=== PATIENT | female | born 1980 | race Caucasian/White ===

== ENCOUNTER 2025-09-19 01:05 | Emergency (ER) | payer OTHER, SELFPAY ==
--- OUTSIDE RECORDS SUMMARY | 2025-09-17 09:00 | XMS_ITS | Encounter Summary ---
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 Name Role Phone Unavailable Primary Care Provider Unavailabl e Reason for Visit * Reason Comments Chest Pain Headache Encounter Details Date Type Department Care Team (Late st Contact Info) Description 09/17/2025 9:00 AM EST Office Visit [facility] [address] [place] [id number] Demi Bills FNP [address] [place] [address] Social History Tobacco Use Types Packs/Day Years Used Date Smoking Tobacco: Every Day Cigarettes Smokeless Tobacco: Never Tobacco Cessation:Ready to Q uit: Not Asked; Counseling Given: Not Answered Comments Unknown Sex and Gender Information Value Date Recorded Sex Assigned at Female 09/17/2025 2:08 PM PST Legal Sex Female 12:29 PM PST Gender Identity Female 09/17/2025 2:08 PM PST Sexual Orientation Straight 09/17/2025 2: 08 PM PST documented as of this encounter Last Filed Vital Signs Vital Sign Reading Time Taken Comments Blood Pressure 140/90 09/17/2025 11:05 AM EST Pulse 74 09/17/2025 11:05 AM EST Temperature 37.3 C (99.2 F) 09/17/2025 11:05 AM EST Respiratory Rate - - Oxygen Saturation 95% 09/17/2025 11:05 AM EST Inhaled Oxygen Concentration - - Weight - - Height - - Body Mass Index - - documented in this encounter Progress Notes * GRZEGORZ Ivory - 09/17/2025 11:59 AM EST Subjective: CC: Chest Pain and 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 Reports having 7 kids. Reports history of pre-eclampsia. Denies taking pain meds Reports chest pain started 3 days ago, reports nausea, vomit, dizziness, reports vomiitting for thepast week- reports daily vomiting. Reports blurry vision started 1 days ago. Reports smoking cigarettes daily, denies cough. Reports irregular periods. Reports last night she took tylenol for chest pain- no effectives. Reports chronic bilateral upper back pain with shoulder pains. Reports increased thirst, urinating a lot. Review of Systems Constitutional: Negative. HENT: Negative. Eyes: Negative. Respiratory: Negative. Cardiovascular: Positive for chest pain. Breasts: Negative. Gastrointestinal: Positive for nausea and vomiting. Endocrine: Negative. Genitourinary: Negative. Musculoskeletal: Negative. Skin: Negative. Allergic/Immunologic: Negative. Neurological: Positive for headaches. Hematological: Negative. Psychiatric/Behavioral: Negative. All other systems reviewed and are negative. Remainder ROS: See HPI, systems reviewed and are otherwise negative or noncontributory. Not on File There is no problem list on file for this patient. Current Outpatient Medications: acetaminophen (TYLENOL) 500 mg tablet, Take 1 Tablet by mouth every 6 (six) hours as needed for pain., Disp: 60 Tablet, Rfl: 3 amLODIPine (NORVASC) 5 mg tablet, Take 1 Tablet by mouth once daily., Disp: 30 Tablet, Rfl: 0 Objective: Vitals: 09/17/25 1105 BP: (!) 140/90 Pulse: 74 Temp: 99.2 ??F (37.3 ??C) SpO2: 95% Physical Exam Vitals and nursing note reviewed. Constitutional: General: She is not in acute distress. Appearance: Normal appearance. She is well-developed. She is not ill-appearing, toxic-appearing or diaphoretic. HENT: Head: Normocephalic and atraumatic. Not macrocephalic. Right Ear: Tympanic membrane, ear canal and external ear normal. There is no impacted cerumen. Left Ear: Tympanic membrane, ear canal and external ear normal. There is no impacted cerumen. Nose: Nose normal. No congestion or rhinorrhea. Mouth/Throat: Mouth: Mucous membranes are moist. Pharynx: Oropharynx is clear. Uvula midline. No oropharyngeal exudate or posterior oropharyngeal erythema. Eyes: General: Lids are normal. No scleral icterus. Right eye: No discharge. Left eye: No discharge. Extraocular Movements: Extraocular movements intact. Conjunctiva/sclera: Conjunctivae normal. Pupils: Pupils are equal, round, and reactive to light. Neck: Thyroid: No thyroid mass, thyromegaly or thyroid tenderness. Trachea: Trachea normal. No tracheal deviation. Cardiovascular: Rate and Rhythm: Normal rate and regular rhythm. Chest Wall: PMI is not displaced. Pulses: Normal pulses. Heart sounds: Normal heart sounds. No murmur heard. No friction rub. No gallop. Pulmonary: Effort: Pulmonary effort is normal. No accessory muscle usage or respiratory distress. Breath sounds: Normal breath sounds. No stridor. No decreased breath sounds, wheezing, rhonchi or rales. Chest: Chest wall: No tenderness. Abdominal: General: Bowel sounds are normal. There is no distension. Palpations: Abdomen is soft. There is no hepatomegaly, splenomegaly or mass. Tenderness: There is no abdominal tenderness. There is no right CVA tenderness, left CVA tenderness, guarding or rebound. Hernia: No hernia is present. Musculoskeletal: General: Normal range of motion. Cervical back: Full passive range of motion without pain, normal range of motion and neck supple. No edema, rigidity or tenderness. Normal range of motion. Lymphadenopathy: Cervical: No cervical adenopathy. Skin: General: Skin is warm and dry. Capillary Refill: Capillary refill takes less than 2 seconds. Coloration: Skin is not jaundiced or pale. Findings: No abrasion, bruising, erythema, lesion or rash. Neurological: General: No focal deficit present. Mental Status: She is alert and oriented to person, place, and time. Mental status is at baseline. Motor: No tremor, atrophy, abnormal muscle tone or seizure activity. Psychiatric: Mood and Affect: Mood normal. Speech: Speech normal. Behavior: Behavior normal. Behavior is cooperative. Thought Content: Thought content normal. Judgment: Judgment normal. Assessment and Plan: Etienne Garcia Angelica??n is a 44 year old female patient who presents as walk-in to urgent care for evaluation of chest pain and h/a R07.9 Intermittent chest pain (primary encounter diagnosis) Plan : ECG ROUTINE ECG W/LEAST 12 LDS TRCG ONLY W/O I&R BLOOD COUNT COMPLETE AUTO&AUTO DIFRNTL WBC COMPREHENSIVE METABOLIC PANEL GONADOTROPIN CHORIONIC QUALITATIVE VITAMIN B12 & FOLATE TROPONIN T TSH W/RFLX FREE T4 HEMOGLOBIN GLYCOSYLATED A1C LIPID PANEL IRON, TIBC, FERRITIN PANEL R11.2 Nausea and vomiting, unspecified vomiting type Plan : H PYLORI UREA BREATH TEST I10 Primary hypertension Plan : AMLODIPINE 5 MG TABLET - Take 1 Tablet by mouth once daily. AMLODIPINE 5 MG TABLET - Take 1 Tablet by mouth once daily. G44.201 Acute intractable tension-type headache Plan : ACETAMINOPHEN 500 MG TABLET - Take 1 Tablet by mouth every 6 (six) hours as needed for pain. Z28.21 Immunization refused Plan: EKG result: Normal Lungs sounds are clear, afebrile. A plan is to obtain labs today. She is starting on amlodipine as ordered and PRN Tylenol for h/a She was informed if no improvement with chest pain, develops vision changes, sob, more weakness then seek immediate medical attention. Pt was educated to increase water intake 2-3L daily r/t recent episodes of vomit. Follow Up: Return if symptoms worsen or fail to improve. documented in this encounter Miscellaneous Notes * Patient Instructions - GRZEGORZ Ivory - 09/17/2025 5:05 PM EST If you are not able to keep your appointment please call 24-48 hours before your appointment to cancel or reschedule. documented in this encounter Plan of Treatment Scheduled Orders Name Type Priority Associated Diagnoses Orde r Schedule TROPONIN T Routine Lab Routine Intermittent chest pain Ordered: 09/17/2025 documented as of this encounter Procedures Procedure Name Priority Date/Time Associated Diagnosis Comments IRON, TIBC, FERRITIN PANEL Routine 09/17/2025 12:33 PM EST Intermittent chest pain TSH W/RFLX FREE T4 Routine 09/17/2025 12 :31 PM EST Intermittent chest pain VITAMIN B12 & FOLATE Routine 09/17/2025 12:31 PM EST Intermittent chest pain BLOOD COUNT COMPLETE AUTO&AUTO DIFRNTL WBC Routine 09/17/2025 12:31 PM EST Intermittent chest pain GONADOTROPIN CHORIONIC QUALITATIVE Routine 09/17/2025 12:31 PM EST Intermittent chest pain HEMOGLOBIN GLYCOSYLATED A1C Routine 09/17/2025 12:31 PM EST Intermittent chest pain H PYLORI UREA BREATH TEST Routine 09/17/2025 12:31 PM EST Nausea and vomiting, unspecified vomiting type LIPID PANEL Routine 09/17/2025 12:31 PM EST Intermittent chest pain COMPREHENSIVE METABOLIC PANEL Routine 09/17/2025 12:31 PM EST Intermittent chest pain documented in this encounter Results * (ABNORMAL) IRON, TIBC, FERRITIN PANEL Routine (09/17/2025 12:33 PM EST) IRON, TOTAL 53 40 - 190 mcg/dL 09/18/2025 9:10 AM EST [facility] IRON BINDING CAPACITY 442 250 - 450 mcg/dL (calc) 09/18/2025 9:10 AM EST [facility] % SATURATION 12(L) 16 - 45 % (calc) 09/18/2025 9:10 AM EST [facility] FERRITIN 7(L) 16 - 232 ng/mL 09/18/2025 5:24 AM EST [facility] Blood Blood / Unknown 09/17/2025 1 2:33 PM EST 09/18/2025 4:[address] [facility] - BLOOD DRAW Final Resul t [employer] [address] [place] [address], [facility] [address] [address] * LIPID PANEL Routine (09/17/2025 12:31 PM EST) CHOLESTEROL, TOTAL 139 <200 mg/dL 09/18/2025 6:10 AM EST [email or web address] HDL CHOLESTEROL 59 > OR = 50 mg/dL 09/18/2025 6:10 AM EST [facility] TRIGLYCERIDES 38 <150 mg/dL 09/18/2025 6:10 AM EST [email or web address] LDL-CHOLESTEROL 69 mg/dL (calc) 09/18/2025 6:10 AM EST [email or web address] [place] [facility] CHOL/HDLC RATIO 2.4 <5.0 (calc) 09/18/2025 6:10 AM EST [email or web address] NON-HDL CHOLESTEROL 80 <130 mg/dL (calc) 09/18/2025 6:10 AM EST [email or web address] Blood Blood / Unknown 09/17/2025 1 2:31 PM EST 09/18/2025 3:54 AM EST Narrative [facility] - 09/18/2025 6:33 AM EST Reference range: <100 . Desirable range <100 mg/dL for primary prevention; <70 mg/dL for patients with CHD or diabetic patients with > or = 2 CHD risk factors. . LDL-C is now calculated using the Juan-Latanya calculation, which is a validated novel method providing better accuracy than the Friedewald equation in the estimation of LDL-C. Juan LGEGETT et al. DAMEON. 2013;310(19): 9784-3943 (http://education.[employer]/faq/BBL647) For patients with diabetes plus 1 major ASCVD risk factor, treating to a non-HDL-C goal of <100 mg/dL (LDL-C of <70 mg/dL) is considered a therapeutic option. us Demi Bills [facility] - BLOOD DRAW Final Resul t [email or web address] [address] [address], [email or web address] [address] [address] * HEMOGLOBIN GLYCOSYLATED A1C Routine (09/17/2025 12:31 PM EST) Pathologist [facility] HEMOGLOBIN A1C 5.6 <5.7 % 09/18/2025 5:23 AM EST [facility] Blood Blood / Unknown 09/17/2025 1 2:31 PM EST 09/18/2025 2:59 AM EST [facility] - 09/18/2025 5:53 AM EST For the purpose of screening for the presence of diabetes: . <5.7% Consistent with the absence of diabetes 5.7-6.4% Consistent with increased risk for diabetes (prediabetes) > or =6.5% Consistent with diabetes . This assay result is consistent with a decreased risk of diabetes. . Currently, no consensus exists regarding use of hemoglobin A1c for diagnosis of diabetes in children. . According to [place] Diabetes Association (ADA) guidelines, hemoglobin A1c <7.0% represents optimal control in non- diabetic patients. Different metrics may apply to specific patient populations. Standards of Medical Care in Diabetes(ADA). . us Demi Bills [facility] - BLOOD DRAW Final Resul t Performing Organization Address [facility] de Phone Number [employer] [address] [place] [address], [employer] [address] [address] * TSH W/RFLX FREE T4 Routine (09/17/2025 12:31 PM EST) TSH W/REFLEX TO FT4 1.30 mIU/L 09/18/2025 6:06 AM EST [facility] Blood Blood / Unknown 09/17/2025 1 2:31 PM EST 09/18/2025 3:54 AM EST [facility] - 09/18/2025 6:33 AM EST Reference Range . > or = 20 Years 0.40-4.50 . Ranges First trimester 0.26-2.66 Second trimester 0.55-2.73 Third trimester 0.43-2.[address] [facility] - BLOOD DRAW Final Resul t Performing Organization Address [facility] de Phone Number [employer] [address] [place] [address], [employer] [address] [address] * VITAMIN B12 & FOLATE Routine (09/17/2025 12:31 PM EST) Pathologist [facility] VITAMIN B12 404 200 - 1,100 pg/mL 09/18/2025 7:45 AM EST [facility] FOLATE, SERUM 12.4 ng/mL 09/18/2025 7:45 AM EST [facility] Blood Blood / Unknown 09/17/2025 1 2:31 PM EST 09/18/2025 3:54 AM EST [facility] - 09/18/2025 7:55 AM EST Reference Range Low: <3.4 Borderline: 3.4-5.4 Normal: >5.4 . us Demi [facility] LAB - BLOOD DRAW Final Resul t Performing Organization Address [facility] Co de Phone Number [facility] [address] [address], [employer] [address] [address] * (ABNORMAL) H PYLORI UREA BREATH TEST Breath BREATH Routine (09/17/2025 12:31 PM EST) [facility] RESULT DETECTED( A) NOT DETECTED 09/18/2025 2:13 PM EST [facility] BREATH (Breath) 09/17/2025 1 2:31 PM EST 09/18/2025 2:08 PM EST [facility] - 09/18/2025 2:45 PM EST . Antimicrobials, proton pump inhibitors, and bismuth preparations are known to suppress H. pylori, and ingestion of these prior to H. pylori diagnostic testing may lead to false negative results. If clinically indicated, the test may be repeated on a new specimen obtained two weeks after discontinuing treatment. However, a positive result is still clinically valid. us Demi LANTIG[facility] - MICROBIOLOGY AMBULATOR Y Final Result Performing Organization Address [facility]/ZIP Co de Phone Number [facility] [address] [address], [employer] [address] [place] [address] * GONADOTROPIN CHORIONIC QUALITATIVE Routine (09/17/2025 12:31 PM EST) Pathologist [facility] CHORIONIC GONADOTROPIN, QUALITATIVE NEGATIVE 09/18/2025 5:26 AM EST [email or web address] Blood Blood / Unknown 09/17/2025 1 2:31 PM EST 09/18/2025 3:54 AM EST Narrative [email or web address] - 09/18/2025 5:53 AM EST Reference Range Non-: Negative : Positive . Demi Bills [facility] - BLOOD DRAW Final Resul t [facility] [address] [address], [employer] [facility] [address] [place] [address] * COMPREHENSIVE METABOLIC PANEL Routine (09/17/2025 12:31 PM EST) [facility] GLUCOSE 77 65 - 99 mg/dL 09/18/2025 6:10 AM [employer] [facility] UREA NITROGEN (BUN) 10 7 - 25 mg/dL 09/18/2025 6:10 AM [employer] [facility] CREATININE (blood) 0.69 0.50 - 0.99 mg/dL 09/18/2025 6:10 AM [employer] [facility] EGFR 110 > OR = 60 mL/min/1. 73m2 09/18/2025 6:10 AM [employer] [facility] BUN/CREATININE RATIO SEE NOTE: 6 - 22 (calc) 09/18/2025 6:10 AM [employer] [facility] SODIUM 139 135 - 146 mmol/L 09/18/2025 6:10 AM [employer] [facility] POTASSIUM 4.1 3.5 - 5.3 mmol/L 09/18/2025 6:10 AM [employer] [facility] CHLORIDE 106 98 - 110 mmol/L 09/18/2025 6:10 AM [employer] [facility] CARBON DIOXIDE 25 20 - 32 mmol/L 09/18/2025 6:10 AM [employer] [facility] CALCIUM 9.3 8.6 - 10.2 mg/dL 09/18/2025 6:10 AM EST [email or web address] PROTEIN, TOTAL 6.9 6.1 - 8.1 g/dL 09/18/2025 6:10 AM EST [email or web address] ALBUMIN 4.3 3.6 - 5.1 g/dL 09/18/2025 6:10 AM EST [email or web address] GLOBULIN 2.6 1.9 - 3.7 g/dL (calc) 09/18/2025 6:10 AM EST [email or web address] ALBUMIN/GLOBULI N RATIO 1.7 1.0 - 2.5 (calc) 09/18/2025 6:10 AM EST [email or web address] BILIRUBIN, TOTAL 0.5 0.2 - 1.2 mg/dL 09/18/2025 6:10 AM EST [email or web address] ALKALINE PHOSPHATASE 76 31 - 125 U/L 09/18/2025 6:10 AM EST [email or web address] AST 17 10 - 30 U/L 09/18/2025 6:10 AM EST [email or web address] ALT 11 6 - 29 U/L 09/18/2025 6:10 AM [employer] [facility] Blood Blood / Unknown 09/17/2025 1 2:31 PM EST 09/18/2025 3:54 AM EST Narrative [facility] - 09/18/2025 6:33 AM EST . Fasting reference interval . Not Reported: BUN and Creatinine are within reference range. . Demi Bills [facility] - BLOOD DRAW Final Resul t [employer] [address] [address], [email or web address] [address] [address] * BLOOD COUNT COMPLETE AUTO&AUTO DIFRNTL WBC Routine (09/17/2025 12:31 PM EST) WHITE BLOOD CELL COUNT 4.8 3.8 - 10.8 Thousand/ uL 09/18/2025 3:21 AM EST [email or web address] RED BLOOD CELL COUNT 4.90 3.80 - 5.10 Million/u L 09/18/2025 3:21 AM EST [email or web address] HEMOGLOBIN 14.5 11.7 - 15.5 g/dL 09/18/2025 3:21 AM EST [email or web address] [facility] HEMATOCRIT 44.9 35.0 - 45.0 % 09/18/2025 3:21 AM [employer] [facility] MCV 91.6 80.0 - 100.0 fL 09/18/2025 3:21 AM [employer] [facility] MCH 29.6 27.0 - 33.0 pg 09/18/2025 3:21 AM [employer] [facility] MCHC 32.3 32.0 - 36.0 g/dL 09/18/2025 3:21 AM [employer] [facility] RDW 11.9 11.0 - 15.0 % 09/18/2025 3:21 AM [employer] [facility] PLATELET COUNT 259 140 - 400 Thousand/ uL 09/18/2025 3:21 AM [employer] [facility] MPV 11.4 7.5 - 12.5 fL 09/18/2025 3:21 AM [employer] [facility] ABSOLUTE NEUTROPHILS 1,512 1,500 - 7,800 cells/uL 09/18/2025 3:21 AM [employer] [facility] ABSOLUTE LYMPHOCYTES 2,654 850 - 3,900 cells/uL 09/18/2025 3:21 AM [employer] [facility] ABSOLUTE MONOCYTES 538 200 - 950 cells/uL 09/18/2025 3:21 AM [employer] [facility] ABSOLUTE EOSINOPHILS 58 15 - 500 cells/uL 09/18/2025 3:21 AM [employer] [facility] ABSOLUTE BASOPHILS 38 0 - 200 cells/uL 09/18/2025 3:21 AM [employer] [facility] NEUTROPHILS PCT 31.5 % 3:21 AM [employer] [facility] LYMPHOCYTES 55.3 % 09/18/2025 3:21 AM [employer] [facility] MONOCYTES 11.2 % 09/18/2025 3:21 AM [employer] [facility] EOSINOPHILS 1.2 % 09/18/2025 3:21 AM [employer] [facility] BASOPHILS 0.8 % 09/18/2025 3:21 AM [employer] [facility] Blood Blood / Unknown 09/17/2025 1 2:31 PM EST 09/18/2025 2:59 AM EST [employer] [facility] - 09/18/2025 3:35 AM EST For adults, a slight decrease in the calculated MCHC value (in the range of 30 to 32 g/dL) is most likely not clinically significant; however, it should be interpreted with caution in correlation with other red cell parameters and the patient's clinical condition. us Demi Bills [facility] - BLOOD DRAW Final Resul t [email or web address] [address] [address], [email or web address] [address] [address] documented in this encounter Visit Diagnoses Diagnosis Intermittent chest pain- Primary Chest pain, unspecified Nausea and vomiting, unspecified vomiting type Primary hypertension Unspecified essential hypertension Acute intractable tension-type headache Immunization refused documented in this encounter
--- NOTE | 2025-09-19 | ECG_ITS ---
Test Reason : CHEST PAIN Blood Pressure : */* mmHG Vent. Rate : 84 BPM Atrial Rate : 84 BPM P-R Int : 124 ms QRS Dur : 90 ms QT Int : 382 ms P-R-T Axes : 62 21 55 degrees QTcB Int : 451 ms Normal sinus rhythm Normal ECG No previous ECGs available Referred By: Generic ED Physician Electronically Signed By: ALLISON CARLSON
--- NOTE | ~2025-09-19 | XR_ITS ---
CLINICAL HISTORY: cough 1 view chest x-ray Comparison: None provided Findings: The lungs are clear. Heart size is normal. No acute fracture. IMPRESSION: 1. No acute findings. This document has been electronically signed by: Ayde Farnsworth MD on 09/19/2025 02:52:49
[2025-09-19 01:12] VITALS: BP 147/88; PULSE 99; RESP 20; TEMP 36.7; O2SAT 97; BMI 29.3
--- NOTE | 2025-09-19 01:50 | ED.GENADULT ---
HPI - General Adult General Chief complaint: General Medical Stated complaint: high blood pressure Time Seen by Provider: 09/19/25 01:49 Source: patient Mode of arrival: ambulatory Limitations: no limitations History of Present Illness ED Provider: Chino ORDAZ HPI narrative: The patient is a 44-year-old female presenting to the ED reporting since Friday she has been experiencing vague symptoms of generalized headache, painful but nonproductive cough, fatigue/malaise, and nausea with poor appetite. The patient reports she was seen at her primary care doctor's office on Friday when symptoms began as she was already there picking up paperwork regarding insurance at work, the patient reports while she was being seen at her doctor's office she had a high blood pressure of 170/100. Patient reports she has been taking Tylenol for her symptoms but denies significant improvement. The patient reports today she experienced an episode of post-tussive vomiting and presents to the ED for evaluation. Patient denies associated hemoptysis, productive cough, spontaneous vomiting, abdominal pain, diarrhea, urinary symptoms, or recent sick contacts or trauma. Related Data Allergies Allergy/AdvReac Type Severity Reaction Status Date / Time No Known Allergies Allergy Verified 09/19/25 01:20 Review of Systems Review of Systems: Yes all other systems are reviewed and are negative PMFSH Social History Social History Smoked in Last 30 Days: Yes Use of substances other than those prescribed or required for medical reasons: No Advance Directives: No Advance Directives Information Provided: No Patient : No Physical Exam ED Vital Signs: Vital Signs - 24 hr 09/19/25 01:12 Temperature 98.1 F Pulse Rate 99 Respiratory Rate 20 Blood Pressure 147/88 H Pulse Oximetry 97 Oxygen Delivery Method Room Air BMI result Body Mass Index 29.3 CONSTITUTIONAL: The patient appears non-toxic, well nourished and in no acute distress. Vital signs as documented. HEAD: Atraumatic, normocephalic. EYES: EOMs grossly intact, pupils equal, conjunctiva clear, no exudate. ENT: Nares patent, no discharge. Airway patent, no audible stridor, visible mucosa is pink and moist without noted lesions. NECK: Trachea is midline, no obvious masses or gross abnormalities. CHEST: Symmetric movement, normal appearance. LUNGS: LS present and CTAB, no w/r/r. Non-labored work of breathing. CARDIAC: Regular Rhythm, S1/S2 appreciated, no murmurs, rubs or gallops. ABDOMEN: Abdomen soft and non-tender x4 quadrants, no palpable masses or organomegaly. : Deferred. EXTREMITIES: Normal tone, moves all extremities spontaneously without reported pain. No obvious acute injury or deformity noted. NEURO: Alert and oriented x3, CN II-XII appear grossly intact. Cerebellar Functioning grossly intact. No obvious sensory or motor deficits. Speech clear and appropriate. PSYCH: normal affect, appropriate eye contact, fluid speech, with appropriate response to questioning. No reported suicidality or homicidality. SKIN: Warm, dry, color appropriate, normal turgor. No rashes noted. Medications Administered Discontinued Medications Generic Name Dose Route Start Last Admin Trade Name Freq PRN Reason Stop Dose Admin Diphenhydramine HCl 25 mg 09/19/25 02:22 09/19/25 02:31 Diphenhydramine Hcl 50 Mg/Ml Vial IVPUSH 09/19/25 02:23 25 mg ONCE ONE Administration Sodium Chloride 1,000 mls @ 999 mls/hr 09/19/25 02:30 09/19/25 03:46 Ns IV 09/19/25 03:30 Infused .Q1H1M SHEREE Infusion Ketorolac Tromethamine 15 mg 09/19/25 02:22 09/19/25 02:31 Ketorolac Tromethamine 15 Mg/Ml Vial IVPUSH 09/19/25 02:23 15 mg ONCE ONE Administration Metoclopramide HCl 10 mg 09/19/25 02:32 09/19/25 02:34 Metoclopramide Hcl 10 Mg/2 Ml Vial IVPUSH 09/19/25 02:33 10 mg ONCE ONE Administration Medical Decision Making Medical Decision Making [facility] Narrative: 2:23 AM 09/19/2025 (Corinne ORDAZ): The patient is a 44-year-old female presenting to the ED reporting since Friday she has been experiencing vague symptoms of generalized headache, painful but nonproductive cough, fatigue/malaise, and nausea with poor appetite. The patient reports she was seen at her primary care doctor's office on Friday when symptoms began as she was already there picking up paperwork regarding insurance at work, the patient reports while she was being seen at her doctor's office she had a high blood pressure of 170/100. Patient reports she has been taking Tylenol for her symptoms but denies significant improvement. The patient reports today she experienced an episode of post-tussive vomiting and presents to the ED for evaluation. Patient denies associated hemoptysis, productive cough, spontaneous vomiting, abdominal pain, diarrhea, urinary symptoms, or recent sick contacts or trauma. On exam patient has no focal findings, no adventitious lung sounds or abdominal tenderness. The patient's laboratory evaluation shows no leukocytosis, anemia, electrolyte abnormality, or FRIDA. The patient's LFTs are unremarkable. The patient's viral swabs are negative for influenza and COVID. The patient's EKG is nonischemic, troponin is pending. Chest x-ray shows no focal consolidation on this provider's interpretation, radiology interpretation is pending. The patient's symptoms appear consistent with viral syndrome, patient reports currently in the ED she feels dehydrated, with a headache and nausea. We will treat the patient with Reglan, Benadryl, Toradol, and IV fluid hydration. Pending improvement in symptoms upon reassessment the patient will likely be discharged home with supportive care. 5:17 AM 09/19/2025 (Corinne ORDAZ): The patient has been resting comfortably since initiation of interventions. At this time patient is awake and reporting significant improvement in symptoms. Patient likely suffering from viral syndrome, we will be discharged with supportive care as outlined above. Admission/Observation Consideration of admission/observation: Escalation of care including admission/observation considered Lab Data MDM Lab Attestation statement: I reviewed the patient's lab results. 09/19/25 01:57 09/19/25 01:57 Labs: Lab Results 09/19/25 09/19/25 Range/Units 01:26 01:57 WBC 4.7 L (4.8-10.8) X10*3/uL RBC 4.71 (4.20-5.50) X10*6/uL Hgb 13.7 (12.0-16.0) g/dl Hct 42.6 (37.0-47.0) % MCV 90.4 (80.0-98.0) fL MCH 29.1 (27.0-33.0) pg MCHC 32.2 (31.0-35.0) g/dl RDW 12.5 (11.0-16.0) % Plt Count 245 (160-400) X10*3/uL MPV 10.5 (9.4-12.3) fL Immature Gran % (Auto) 0.2 (0.0-0.4) % Neut % (Auto) 31.6 L (45-73) % Lymph % (Auto) 48.9 H (20-40) % [place] % (Auto) 16.1 H (2-11) % Eos % (Auto) 1.9 (0-4) % Baso % (Auto) 1.3 (0-2) % Lymph # (Auto) 2.3 (1.2-4.9) X10*3/uL [place] # (Auto) 0.8 (0.1-1.2) X10*3/uL Eos # (Auto) 0.1 (0.0-0.4) X10*3/uL Baso # (Auto) 0.1 (0.0-0.2) X10*3/uL Abs Immat Gran (auto) 0.01 (0.00-0.03) X10*3/uL Absolute Neuts (auto) 1.5 L (2.0-8.3) x10*3/uL Absolute Nucleated RBC 0.000 (0.0-0.012) X10*3/uL Nucleated RBC % (auto) 0.0 (0.0-0.2) /100WBC Sodium 140 (135-145) mmol/L Potassium 3.5 (3.3-5.1) mmol/L Chloride 110 H (96-108) mmol/L Carbon Dioxide 22 (22-29) mmol/L Anion Gap 12 (12-20) BUN 19 H (9-16) mg/dL Creatinine 0.69 (0.5-1.4) mg/dL Estim Creat Clear Calc 105.9 Estimated GFR > 60 Random Glucose 113 (60-115) mg/dL Calcium 9.1 (8.4-10.2) mg/dL Total Bilirubin 0.2 (0.0-1.0) mg/dL AST 23 (5-31) U/L ALT 11 (0-31) U/L Alkaline Phosphatase 84 (39-117) U/L Troponin I High Sens < 2.7 (<3.5-17.0) ng/L Total Protein 6.5 (6.5-8.0) g/dL Albumin 4.1 (3.5-5.0) g/dL COVID-19 (JOSE) Negative (Negative) COVID-19 Clin Com See Note Influenza Type A (CYNDEE) Negative (Negative) Influenza Type B (CYNDEE) Negative (Negative) Influenza A & B Note See Note Radiology Impression Discussion of test interpretation with radiology: I have reviewed the radiologist's reading. Radiologist Impression: 1 view chest x-ray Comparison: None provided Findings: The lungs are clear. Heart size is normal. No acute fracture. IMPRESSION: 1. No acute findings. This document has been electronically signed by: Ayde Farnsworth MD on 09/19/2025 02:52:49 Discharge Plan Discharge Clinical Impression: Acute viral syndrome Patient Disposition: Home, Self-Care Instructions: Viral Syndrome (ED) Additional Instructions: Thank you for choosing [facility]'s Emergency Department for your care today. Thankfully your laboratory evaluation, EKG, chest x-ray, viral swabs, vital signs, and exam today are all reassuring At this time there is no indication for admission to the hospital or continued ED observation, and it is safe to discharge you home. There was no evidence of a heart attack, pneumonia, COVID infection, influenza infection, systemic bacterial infection, anemia, electrolyte deficiency, acute kidney dysfunction, or liver dysfunction contributing to your symptoms. Your symptoms are likely secondary to a viral illness. You should take alternating (staggered) doses of ibuprofen 600mg and Tylenol 1000mg every 4 hours as needed for any additional pain. Please stay well hydrated and get plenty of rest. Please follow up with your primary care physician for re-evaluation, additional management of your symptoms, and continued preventative care. If you do not have a primary care physician, please call the [facility] at [phone] to establish a new primary care physician. While waiting to establish your new primary care physician, you can call our [facility] at [phone] for non-emergency needs. Please return to the emergency department if you develop a severe or sudden change in your symptoms, a fever over 100.4 that does not improve with Tylenol or Ibuprofen, recurrent vomiting, or any other new or worsening symptoms or concerns. Referrals: Jose G Mclean PA-C [Primary Care Provider, Internal Medicine] Clinical Impression: Acute viral syndrome Print Language: Occitan
--- OUTSIDE RECORDS SUMMARY | 2025-09-19 01:56 | XMS_ITS | Clinical Summary ---
Author Organization [facility] Address [address] [place] [address] Care Team Providers Care Welding Operator Name Role Phone Unavailable Primary Care Provider Unavailabl e Source Comments PLEASE NOTE, if this patient is a minor, it may be UNLAWFUL to discuss sensitive information that is contained in these records (such as FAMILY PLANNING, MENTAL HEALTH or SUBSTANCE ABUSE) with the minor patient's parent or other person without the patient's specific authorization.[facility] Medications acetaminophen (TYLENOL) 500 mg tabletIndications :Acute intractable tension-type headache Take 1 Tablet by mouth every 6 (six) hours as needed for pain. 60 Tablet 3 5 Active amLODIPine (NORVASC) 5 mg tabletIndications :Primary hypertension Take 1 Tablet by mouth once daily. 30 Tablet 5 Active ferrous sulfate 325 mg (65 mg iron) tabletIndications :Other iron deficiency anemia Take 1 Tablet by mouth once daily with breakfast. 90 Tablet 5 Active pantoprazole (PROTONIX) 40 mg EC tabletIndications :H. pylori infection Take 1 Tablet by mouth 2 (two) times daily for 14 days. 28 Tablet 5 10/02/20 25 Active clarithromycin (BIAXIN) 500 mg tabletIndications :H. pylori infection Take 1 Tablet by mouth 2 (two) times daily for 14 days. 28 Tablet 5 10/02/20 25 Active amoxicillin (AMOXIL) 500 mg tabletIndications :H. pylori infection Take 2 Tablets by mouth 2 (two) times daily for 14 days. 56 Tablet 5 10/02/20 25 Active cyanocobalamin, vitamin B-12, 1,000 mcg SL tabletIndications :Other fatigue Place 1 Tablet under the tongue once daily. 90 Tablet 5 Active amLODIPine (NORVASC) 5 mg tabletIndications :Primary hypertension Take 1 Tablet by mouth once daily. 30 Tablet 09/17/20 25 Discontinu ed(Reorder (E-Cancel Not Sent)) Active Problems No known active problems Encounters Date Type Department Care Team Description 09/18/2025 Results Follow-Up [address] [phone] Demi Bills FNP 09/17/2025 9:00 AM EST Office Visit [address] [phone] Demi Bills FNP from Last 3 Months Social History Tobacco Use Types Packs/Day Years [...] Orientation Straight 09/17/2025 2: 08 PM PST Last Filed Vital Signs Vital Sign Reading Time Taken Comments Blood Pressure 140/90 09/17/2025 11:05 AM EST Pulse 74 09/17/2025 11:05 AM EST Temperature 37.3 C (99.2 F) 09/17/2025 11:05 AM EST Respiratory Rate - - Oxygen Saturation 95% 09/17/2025 11:05 AM EST Inhaled Oxygen Concentration - - Weight - - Height - - Body Mass Index - - Plan of Treatment Health Maintenance Due Date Last Done Comments Anxiety Screening 1981 HPV Screening (self-collect) 1981 HPV Screening 1981 Hepatitis C Screening 1981 Pap + HPV 1981 Tobacco Cessation Counseling (#1) 1981 HIV Screening 1996 Relationship Safety Screening/Counseling 1996 Imm-DTaP/Tdap/Td (1 - Tdap) 2000 Imm-Hepatitis B (1 of 3 - 19 + 3-dose series) 2000 Imm-Pneumococcal (1 of 2 - PCV) 2000 Cervical Cancer Screening 2002 Pap Smear 2002 Imm-HPV (1 - 3-dose SCDM series) 2008 Breast Cancer Screening (Mammogram) 2021 Alcohol and Drug Screen 11/03/2024 Depression Annual Screen 11/03/2024 [id number] ( season) 2025 Imm-Influenza (#1) 2025 Diabetes Screening 09/17/2028 09/17/2025, 09/17/2025 Lipid Screening 09/17/2028 09/17/2025 Cervical Ablation/Cold-Knife Conization Discontinued Cervical Cryotherapy Discontinued Colposcopy Discontinued Excision/Leep Discontinued HPV Genotyping Discontinued Vaginal Pap Discontinued Vulvoscopy Discontinued Procedures Procedure Name Priority Date/Time Associated Diagnosis Comments IRON, TIBC, FERRITIN PANEL Routine 09/17/2025 12:33 PM EST Intermittent chest pain LIPID PANEL Routine 09/17/2025 12:31 PM EST Intermittent chest pain HEMOGLOBIN GLYCOSYLATED A1C Routine 09/17/2025 12:31 PM EST Intermittent chest pain TSH W/RFLX FREE T4 Routine 09/17/2025 12 :31 PM EST Intermittent chest pain VITAMIN B12 & FOLATE Routine 09/17/2025 12:31 PM EST Intermittent chest pain H PYLORI UREA BREATH TEST Routine 09/17/2025 12:31 PM EST Nausea and vomiting, unspecified vomiting type GONADOTROPIN CHORIONIC QUALITATIVE Routine 09/17/2025 12:31 PM EST Intermittent chest pain COMPREHENSIVE METABOLIC PANEL Routine 09/17/2025 12:31 PM EST Intermittent chest pain BLOOD COUNT COMPLETE AUTO&AUTO DIFRNTL WBC Routine 09/17/2025 12:31 PM EST Intermittent chest pain from Last 3 Months Results * (ABNORMAL) IRON, TIBC, FERRITIN PANEL Routine (09/17/2025 12:33 PM EST) IRON, TOTAL 53 40 - 190 mcg/dL 09/18/2025 9:10 AM EST [facility] IRON BINDING CAPACITY 442 250 - 450 mcg/dL (calc) 09/18/2025 9:10 AM EST [facility] % SATURATION 12(L) 16 - 45 % (calc) 09/18/2025 9:10 AM EST [facility] FERRITIN 7(L) 16 - 232 ng/mL 09/18/2025 5:24 AM EST [facility] Blood Blood / Unknown 09/17/2025 1 2:33 PM EST 09/18/2025 4:08 AM EST us Demi Bills [facility] - BLOOD DRAW Final Resul t Performing Organization Address [facility] de Phone Number [employer] [address] [address], [employer] [address] [address] * TSH W/RFLX FREE T4 Routine (09/17/2025 12:31 PM EST) [facility] TSH W/REFLEX TO FT4 1.30 mIU/L 09/18/2025 6:06 AM EST [employer] Blood Blood / Unknown 09/17/2025 1 2:31 PM EST 09/18/2025 3:54 AM EST Narrative [facility] - 09/18/2025 6:33 AM EST Reference Range . > or = 20 Years 0.40-4.50 . Ranges First trimester 0.26-2.66 Second trimester 0.55-2.73 Third trimester 0.43-2.91 us Demi Bills [facility] - BLOOD DRAW Final Resul t Performing Organization Address [facility] Co de Phone Number [employer] [employer] [address] [place] [address], [employer] [address] [address] * VITAMIN B12 & FOLATE Routine (09/17/2025 12:31 PM EST) [facility] VITAMIN B12 404 200 - 1,100 pg/mL 09/18/2025 7:45 AM EST [employer] [facility] FOLATE, SERUM 12.4 ng/mL 09/18/2025 7:45 AM EST [employer] [facility] Blood Blood / Unknown 09/17/2025 1 2:31 PM EST 09/18/2025 3:54 AM EST Narrative [facility] - 09/18/2025 7:55 AM EST Reference Range Low: <3.4 Borderline: 3.4-5.4 Normal: >5.4 . Demi Bills [facility] - BLOOD DRAW Final Resul t [employer] [address] [address], [employer] [facility] [address] [place] [address] * BLOOD COUNT COMPLETE AUTO&AUTO DIFRNTL WBC Routine (09/17/2025 12:31 PM EST) WHITE BLOOD CELL COUNT 4.8 3.8 - 10.8 Thousand/ uL 09/18/2025 3:21 AM [employer] [facility] RED BLOOD CELL COUNT 4.90 3.80 - 5.10 Million/u L 09/18/2025 3:21 AM [employer] [facility] HEMOGLOBIN 14.5 11.7 - 15.5 g/dL 09/18/2025 3:21 AM [employer] [facility] HEMATOCRIT 44.9 35.0 - 45.0 % 09/18/2025 3:21 AM [employer] [facility] MCV 91.6 80.0 - 100.0 fL 09/18/2025 3:21 AM [employer] [facility] MCH 29.6 27.0 - 33.0 pg 09/18/2025 3:21 AM [employer] [facility] MCHC 32.3 32.0 - 36.0 g/dL 09/18/2025 3:21 AM [employer] [facility] RDW 11.9 11.0 - 15.0 % 09/18/2025 3:21 AM [employer] [facility] PLATELET COUNT 259 140 - 400 Thousand/ uL 09/18/2025 3:21 AM [employer] [facility] MPV 11.4 7.5 - 12.5 fL 09/18/2025 3:21 AM EST [employer] ABSOLUTE NEUTROPHILS 1,512 1,500 - 7,800 cells/uL 09/18/2025 3:21 AM EST [employer] ABSOLUTE LYMPHOCYTES 2,654 850 - 3,900 cells/uL 09/18/2025 3:21 AM EST [employer] ABSOLUTE MONOCYTES 538 200 - 950 cells/uL 09/18/2025 3:21 AM EST [employer] ABSOLUTE EOSINOPHILS 58 15 - 500 cells/uL 09/18/2025 3:21 AM EST [employer] ABSOLUTE BASOPHILS 38 0 - 200 cells/uL 09/18/2025 3:21 AM EST [employer] NEUTROPHILS PCT 31.5 % 3:21 AM EST [employer] LYMPHOCYTES 55.3 % 09/18/2025 3:21 AM EST [facility] [facility] MONOCYTES 11.2 % 09/18/2025 3:21 AM EST [employer] EOSINOPHILS 1.2 % 09/18/2025 3:21 AM EST [employer] BASOPHILS 0.8 % 09/18/2025 3:21 AM EST [employer] Blood Blood / Unknown 09/17/2025 1 2:31 PM EST 09/18/2025 2:59 AM EST Narrative [employer] - 09/18/2025 3:35 AM EST For adults, a slight decrease in the calculated MCHC value (in the range of 30 to 32 g/dL) is most likely not clinically significant; however, it should be interpreted with caution in correlation with other red cell parameters and the patient's clinical condition. us Demi Bills [facility] - BLOOD DRAW Final Resul t [facility] [employer] [address] [address], [employer] [facility] [address] [place] [address] * GONADOTROPIN CHORIONIC QUALITATIVE Routine (09/17/2025 12:31 PM EST) CHORIONIC GONADOTROPIN, QUALITATIVE NEGATIVE 09/18/2025 5:26 AM EST [employer] Blood Blood / Unknown 09/17/2025 1 2:31 PM EST 09/18/2025 3:54 AM EST [employer] - 09/18/2025 5:53 AM EST Reference Range Non-: Negative : Positive . [employer] Demi Aliciarian [facility] - BLOOD DRAW Final Resul t Performing Organization Address [facility] Co de Phone Number [employer] [address] [address], [employer] [address] [address] * HEMOGLOBIN GLYCOSYLATED A1C Routine (09/17/2025 12:31 PM EST) HEMOGLOBIN A1C 5.6 <5.7 % 09/18/2025 5:23 AM EST [employer] Blood Blood / Unknown 09/17/2025 1 2:31 PM EST 09/18/2025 2:59 AM EST [employer] - 09/18/2025 5:53 AM EST For the [...] of diabetes in children. . According to [place] Diabetes Association (ADA) guidelines, hemoglobin A1c <7.0% represents optimal control in non- diabetic patients. Different metrics may apply to specific patient populations. Standards of Medical Care in Diabetes(ADA). . [employer] Demi Aliciarian [facility] - BLOOD DRAW Final Resul t Performing Organization Address City/[facility]/ZIP Co de Phone Number [facility] [address] [address], [employer] [address] [phone] * (ABNORMAL) H PYLORI UREA BREATH TEST Breath BREATH Routine (09/17/2025 12:31 PM EST) RESULT DETECTED( A) NOT DETECTED 09/18/2025 2:13 PM EST [employer] [facility] BREATH (Breath) 09/17/2025 1 2:31 PM EST 09/18/2025 2:08 PM EST Narrative [facility] - 09/18/2025 2:45 PM EST . Antimicrobials, proton pump inhibitors, and bismuth preparations are known to suppress H. pylori, and ingestion of these prior to H. pylori diagnostic testing may lead to false negative results. If clinically indicated, the test may be repeated on a new specimen obtained two weeks after discontinuing treatment. However, a positive result is still clinically valid. Demi Bills [facility] - MICROBIOLOGY AMBULATOR Y Final Result [employer] [address] [place] [address], [facility] [employer] [address] [address] * LIPID PANEL Routine (09/17/2025 12:31 PM EST) CHOLESTEROL, TOTAL 139 <200 mg/dL 09/18/2025 6:10 AM EST [facility] HDL CHOLESTEROL 59 > OR = 50 mg/dL 09/18/2025 6:10 AM EST [facility] TRIGLYCERIDES 38 <150 mg/dL 09/18/2025 6:10 AM EST [facility] LDL-CHOLESTEROL 69 mg/dL (calc) 09/18/2025 6:10 AM EST [facility] CHOL/HDLC RATIO 2.4 <5.0 (calc) 09/18/2025 6:10 AM EST [facility] NON-HDL CHOLESTEROL 80 <130 mg/dL (calc) 09/18/2025 6:10 AM EST [facility] Blood Blood / Unknown 09/17/2025 1 2:31 PM EST 09/18/2025 3:54 AM EST Christiane [facility] - 09/18/2025 6:33 AM EST Reference range: <100 . Desirable range <100 mg/dL for primary prevention; <70 mg/dL for patients with CHD or diabetic patients with > or = 2 CHD risk factors. . LDL-C is now calculated using the Juan-Pelaez calculation, which is a validated novel method providing better accuracy than the Friedewald equation in the estimation of LDL-C. Juan SS et al. DAMEON. 2013;310(18): 9356-9049 (http://education.[employer]/faq/DQR684) For patients with diabetes plus 1 major ASCVD risk factor, treating to a non-HDL-C goal of <100 mg/dL (LDL-C of <70 mg/dL) is considered a therapeutic option. Demi Bills [facility] - BLOOD DRAW Final Resul t [facility] [address] [address], [employer] [facility] [address] [place] [address] * COMPREHENSIVE METABOLIC PANEL Routine (09/17/2025 12:31 PM EST) Pathologist [facility] GLUCOSE 77 65 - 99 mg/dL 09/18/2025 6:10 AM EST [employer] [facility] UREA NITROGEN (BUN) 10 7 - 25 mg/dL 09/18/2025 6:10 AM [employer] [facility] CREATININE (blood) 0.69 0.50 - 0.99 mg/dL 09/18/2025 6:10 AM EST [employer] [facility] EGFR 110 > OR = 60 mL/min/1. 73m2 09/18/2025 6:10 AM [employer] [facility] BUN/CREATININE RATIO SEE NOTE: 6 - 22 (calc) 09/18/2025 6:10 AM EST [facility] [facility] SODIUM 139 135 - 146 mmol/L 09/18/2025 6:10 AM EST [employer] POTASSIUM 4.1 3.5 - 5.3 mmol/L 09/18/2025 6:10 AM [employer] CHLORIDE 106 98 - 110 mmol/L 09/18/2025 6:10 AM [employer] CARBON DIOXIDE 25 20 - 32 mmol/L 09/18/2025 6:10 AM [employer] CALCIUM 9.3 8.6 - 10.2 mg/dL 09/18/2025 6:10 AM [employer] [facility] PROTEIN, TOTAL 6.9 6.1 - 8.1 g/dL 09/18/2025 6:10 AM EST [facility] ALBUMIN 4.3 3.6 - 5.1 g/dL 09/18/2025 6:10 AM EST [facility] [place] [employer] GLOBULIN 2.6 1.9 - 3.7 g/dL (calc) 09/18/2025 6:10 AM EST [facility] [place] [employer] ALBUMIN/GLOBULI N RATIO 1.7 1.0 - 2.5 (calc) 09/18/2025 6:10 AM EST [facility] [facility] BILIRUBIN, TOTAL 0.5 0.2 - 1.2 mg/dL 09/18/2025 6:10 AM EST [facility] [facility] ALKALINE PHOSPHATASE 76 31 - 125 U/L 09/18/2025 6:10 AM EST [employer] AST 17 10 - 30 U/L 09/18/2025 6:10 AM EST [facility] [facility] ALT 11 6 - 29 U/L 09/18/2025 6:10 AM EST [employer] [facility] Blood Blood / Unknown 09/17/2025 1 2:31 PM EST 09/18/2025 3:54 AM EST Narrative [facility] - 09/18/2025 6:33 AM EST . Fasting reference interval . Not Reported: BUN and Creatinine are within reference range. . us Demi Bills [facility] - BLOOD DRAW Final Resul t [employer] [address] [address], [employer] [address] [address] from Last 3 Months Insurance [employer]
--- OUTSIDE RECORDS SUMMARY | 2025-09-19 01:56 | XMS_ITS | Encounter Summary ---
Author Organization [facility] Address [address] [place] [address] Care Team Providers Care Chief Crew Scheduler Name Role Phone Unavailable Primary Care Provider Unavailabl e Encounter Details Date Type Department Care Team (Late st Contact Info) Description 09/18/2025 Results Follow-Up [facility] [address] [place] [phone] Demi Bills [facility] [address] [place] [address] Social History Tobacco Use Types Packs/Day Years Used Date Smoking Tobacco: Every Day Cigarettes Smokeless Tobacco: Never Comments Unknown Sex and Gender Information Value Date Recorded Sex Assigned at Female 09/17/2025 2:08 PM PST Legal Sex Female 12:29 PM PST Gender Identity Female 09/17/2025 2:08 PM PST Sexual Orientation Straight 09/17/2025 2: 08 PM PST documented as of this encounter Plan of Treatment Not on file documented as of this encounter Visit Diagnoses Diagnosis H. pylori infection- Primary Helicobacter pylori (H. pylori) Other iron deficiency anemia Other fatigue documented in this encounter
[2025-09-19 02:02] LABS: MANUAL DIFF FLAG NO
[2025-09-19 02:07] LABS: Hematocrit 42.6 % (37.0-47.0); Hemoglobin 13.7 g/dl (12.0-16.0); Imm Gran Abs Auto 0.01 X10*3/uL (0.00-0.03); Imm Gran Pct Auto 0.2 % (0.0-0.4); Lymphocytes Absolute Auto 2.3 X10*3/uL (1.2-4.9); Mean Corpuscular HGB Conc 32.2 g/dl (31.0-35.0); Mean Corpuscular Hemoglobin 29.1 pg (27.0-33.0); Mean Corpuscular Volume 90.4 fL (80.0-98.0); NRBC Abs Auto 0.000 X10*3/uL (0.0-0.012); NRBC Pct Auto 0.0 /100WBC (0.0-0.2); Platelet Count 245 X10*3/uL (160-400); Red Blood Count 4.71 X10*6/uL (4.20-5.50); White Blood Count 4.7 X10*3/uL (4.8-10.8)
[2025-09-19 02:18] LABS: COVID-19 Test Negative (Negative); IDNOW Serial# 152EDE1D; IDNOW Serial# 16C4AD1C; Influenza B2 Negative (Negative)
[2025-09-19 02:19] LABS: Alanine Aminotransferase 11 U/L (0-31); Albumin Level 4.1 g/dL (3.5-5.0); Alkaline Phosphatase 84 U/L (39-117); Anion Gap 12 (12-20); Aspartate Amino Transferase 23 U/L (5-31); Blood Urea Nitrogen 19 mg/dL (9-16); Calcium 9.1 mg/dL (8.4-10.2); Carbon Dioxide 22 mmol/L (22-29); Chloride 110 mmol/L (96-108); Creatinine Clr Calc Pharmacy 105.9; Estimated Glomerular Filt Rate > 60; Potassium 3.5 mmol/L (3.3-5.1); Sodium 140 mmol/L (135-145); Total Protein 6.5 g/dL (6.5-8.0)
[2025-09-19 02:28] LABS: Troponin-I High Sensitivity < 2.7 ng/L (<3.5-17.0)
[2025-09-19 05:34] VITALS: BP 134/98; PULSE 73; RESP 19; TEMP 36.8; O2SAT 100
[2025-09-19 05:43] VITALS: BP 134/98; PULSE 73; RESP 19; TEMP 36.8; O2SAT 100
== END 2025-09-19 05:49 | disposition home or self-care (01) ==
PROVIDERS: Emergency Provider Emergency Medicine; PCP Physician Assistant Medical
DX: B34.9 Viral infection, unspecified (principal); R51.9 Headache, unspecified; R05.9 Cough, unspecified; R53.83 Other fatigue; R11.0 Nausea; R07.9 Chest pain, unspecified; Z03.818 Encounter for observation for suspected exposure to other biological agents ruled out
CPT/HCPCS: 36415; 71045; 80053; 84484; 85025; 87502; 87635; 93005; 96361; 96372; 96374; 96375; 99284; 99285; J1200; J1885; J2765

== ENCOUNTER → 2025-09-19 01:39 | Outpatient (BNV) | payer OTHER, SELFPAY | PROVIDERS: Emergency Provider Emergency Medicine; PCP Physician Assistant Medical; Visit Provider Radiology Diagnostic Radiology | DX: R05.9 Cough, unspecified (principal) | CPT/HCPCS: 71045 ==

== ENCOUNTER → 2025-09-19 01:44 | Outpatient (BNV) | payer OTHER, SELFPAY | PROVIDERS: Emergency Provider Emergency Medicine; PCP Physician Assistant Medical; Visit Provider Internal Medicine | DX: R07.9 Chest pain, unspecified (principal) | CPT/HCPCS: 93010 ==

== ENCOUNTER 2025-10-15 07:22 | Emergency (ER) | payer OTHER, SELFPAY ==
--- NOTE | ~2025-10-15 | US_ITS ---
CLINICAL HISTORY: pelvic pain bleeding, r o torsion US pelvis transabdominal and transvaginal with color and duplex Doppler Comparison: None Findings: Transabdominal scanning performed for overall anatomy. Transvaginal scanning performed for additional detail. LMP: 08/17/2025 Anteverted uterus, normal size and echotexture, measuring 10.1 x 4.5 x 5.8 cm. Well defined endometrium, measuring 8.0 mm in thickness. The right ovary measures, 2.6 x 2.1 x 2.3 cm. Normal sonographic appearance right ovary. Normal color Doppler with normal ovarian arterial and venous spectral tracing, The left ovary measures, 4.6 x 2.1 x 4.1 cm. Probable hemorrhagic cyst measuring 2.1 x 1.6 x 1.6 cm. Normal color Doppler with normal ovarian arterial and venous spectral tracing. No adnexal masses or fluid collections. No free fluid Impression: 1. No evidence of ovarian torsion. 2. Probable hemorrhagic cyst left ovary 3. Normal uterus This document has been electronically signed by: Cortes Campo MD on 10/15/2025 10:52:20
[2025-10-15 07:29] VITALS: BP 145/104; PULSE 76; RESP 16; TEMP 36.6; O2SAT 100; BMI 29.2
[2025-10-15 07:51] LABS: MANUAL DIFF FLAG NO
[2025-10-15 07:55] LABS: Hematocrit 45.3 % (37.0-47.0); Hemoglobin 14.7 g/dl (12.0-16.0); Imm Gran Abs Auto 0.01 X10*3/uL (0.00-0.03); Imm Gran Pct Auto 0.2 % (0.0-0.4); Lymphocytes Absolute Auto 1.9 X10*3/uL (1.2-4.9); Mean Corpuscular HGB Conc 32.5 g/dl (31.0-35.0); Mean Corpuscular Hemoglobin 29.3 pg (27.0-33.0); Mean Corpuscular Volume 90.4 fL (80.0-98.0); NRBC Abs Auto 0.000 X10*3/uL (0.0-0.012); NRBC Pct Auto 0.0 /100WBC (0.0-0.2); Platelet Count 297 X10*3/uL (160-400); Red Blood Count 5.01 X10*6/uL (4.20-5.50); White Blood Count 4.5 X10*3/uL (4.8-10.8)
[2025-10-15 08:00] VITALS: BP 146/94; PULSE 72; RESP 16; O2SAT 100
[2025-10-15 08:00] LABS: Appearance Urine Cloudy; Glucose Urine UA Negative (Negative); PH 6.0 (5.0-9.0); Specific Gravity - Urine 1.020 (1.005-1.025); UMIC TRIGGER UACC YES
[2025-10-15 08:06] LABS: UACC Culture Trigger YES
[2025-10-15 08:16] LABS: Alanine Aminotransferase 13 U/L (0-31); Albumin Level 4.4 g/dL (3.5-5.0); Alkaline Phosphatase 85 U/L (39-117); Anion Gap 13 (12-20); Aspartate Amino Transferase 31 U/L (5-31); Blood Urea Nitrogen 11 mg/dL (9-16); Calcium 10.0 mg/dL (8.4-10.2); Carbon Dioxide 24 mmol/L (22-29); Chloride 108 mmol/L (96-108); Creatinine Clr Calc Pharmacy 106.2; Estimated Glomerular Filt Rate > 60; Potassium 4.2 mmol/L (3.3-5.1); Sodium 141 mmol/L (135-145); Total Protein 7.2 g/dL (6.5-8.0)
[2025-10-15 08:40] LABS: UPreg QC Valid YES
--- NOTE | 2025-10-15 09:10 | ED_ITS ---
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 Developed vaginal bleeding this morning and has used 4 pads. She is having bright red bleeding with clots. She denies any fevers, chills, vomiting, urinary symptoms. Her last menstrual cycle was August 17. She normally is regular. She is sexually active currently. No new sexual partners. She is not currently taking any contraception. 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 she has not seen a home management supervisor in more than 3 years. She does have a history of an abnormal Pap with a negative colposcopy. She is scheduled to see [facility] range rider on November 07. Related Data Previous Rx's ?Medication ?Instructions ?Recorded ibuprofen 600 mg tablet 600 mg PO QID PRN pain #30 t abs 10/15/25 metronidazole 500 mg tablet 500 mg PO BID 7 days #14 t abs 10/15/25 Allergies Allergy/AdvReac Type Severity Reaction Status Date / Time No Known Allergies Allergy Verified 10/15/25 07:36 Review of Systems 2 Review of Systems: Yes all other systems are reviewed and are negative Constitutional: Constitutional: Reports no additional constitutional complaints, Denies body ache(s), Denies chills, Denies fever(s), Denies headache(s) and Denies weakness Eyes: Eyes: Reports no additional eye complaints and Denies change in vision ENT: Reports system reviewed and no additional complaints, except as documented, Denies dizziness, Denies headache(s), Denies nasal congestion, Denies nasal discharge and Denies neck pain Cardiovascular: Cardiovascular: Reports no additional cardiovascular complaints, Denies chest pain, Denies leg edema and Denies dyspnea Respiratory: Respiratory: Reports no additional respiratory complaints, Denies cough and Denies dyspnea Gastrointestinal: Gastrointestinal: Reports no additional gastrointestinal complaints, Denies abdominal pain, Denies diarrhea, Denies nausea and Denies vomiting Genitourinary: Genitourinary: Reports no additional female genitourinary complaints, Reports abnormal vaginal bleeding, Reports pelvic pain, Denies urinary incontinence, Denies urinary hesitancy, Denies urinary urgency, Denies vaginal discharge, Denies vaginal dryness and Denies vaginal odor Musculoskeletal: Musculoskeletal: Reports no additional musculoskeletal complaints, Reports back pain, Denies arthralgias, Denies joint swelling, Denies neck pain, Denies numbness and Denies tingling Integumentary/Breasts: Skin/Breast: Reports system reviewed and no additional complaints, except as docu and Denies rash Neurologic: Reports system reviewed and no additional complaints, except as documented, Denies Abnormal speech present, Denies dizziness, Denies headache(s), Denies numbness, Denies tingling and Denies weakness PMFSH Past Medical History Attestation statement: The following information was validated with the patient. Source: old records reviewed and nursing notes reviewed Social History Social History Advance Directives: No Advance Directives Information Provided: Yes Physical Exam 2 Vital Signs: Vital Signs: Last Vital Signs Temp 98.4 F 10/15/25 10:51 Pulse 68 10/15/25 10:51 Resp 16 10/15/25 10:51 BP 137/87 10/15/25 10:51 Pulse Ox 98 10/15/25 10:51 O2 Del Method Room Air 10/15/25 10:51 BMI result Body Mass Index 29.2 Const: General: cooperative, healthy appearing, comfortable and no acute distress Orientation/consciousness: patient oriented x3 Limitations: no limitations HEENT: Head: Yes normal to inspection Ears: hearing grossly normal bilaterally General nose exam: Normal external nose present Face and sinus: Yes normal facial exam Mouth: Normal oral and palatal mucosa present Throat: Yes posterior oropharynx normal Eyes: General: appearance normal, both eyes and all related structures P upils: Equal, round and reactive pupils present Neck: Neck: Yes normal visual inspection Chest: Chest palpation & inspection: normal inspection of the chest Resp: Effort & Inspection: normal respiratory effort Auscultation: clear to auscultation bilaterally Cardio: Rate: regular rate Rhythm: regular rhythm Peripheral pulses: P eripheral pulses 2+ throughout GI: Inspection: Yes normal to inspection Palpation (GI): Soft to palpation and Tenderness to palpation present (GI) (mild Suprapubic discomfort with no rebound or guard) Auscultation: normal bowel sounds : Other: There is a moderate amount of bleeding coming from the cervical os. There is diffuse tenderness on the bimanual exam. Ragini RN senior manager asset protection General: Yes no CVA tenderness External Female Exam: normal external appearance Speculum Exam - Vagina: normal appearance of the vagina S peculum Exam - Cervix: normal appearance of the cervix Back/Spine/Pelvis: Back: no CVA tenderness Thoracic/Lumbar Spine: thoracic and lumbar spine normal to inspection Skin: General skin exam: no rashes or lesions noted Neuro: General: patient oriented x3, no focal motor deficits and normal sensation to monofilament Cranial nerves: Yes Equal, round and reactive pupils present Cognition (Neuro): normal cognition Speech: No Abnormal speech present Gait exam (Neuro): Normal gait present Motor exam (neuro): 5/5 motor strength present throughout Extrem: General: Yes normal to inspection Course Course Course Narrative: labs are unremarkable. Urine is negative. Beta quant is also negative. Ultrasound shows a left hemorrhagic ovarian cyst with no evidence of ovarian torsion. Patient is BV positive. Her STI panel is pending. She has low suspicion for STI and does not want to be treated until she has her results. I will treat her supportively with analgesia for her ovarian cyst and she has follow-up on 11/07 with gynecology outpatient. I will also treat her for BV. Reviewed worrisome signs and symptoms of when to return to the emergency room. Comfortable plan for discharge home. Medications Administered Discontinued Medications Generic Name Dose Route Start Last Admin Trade Name Freq PRN Reason Stop Dose Admin Ketorolac Tromethamine 30 mg 10/15/25 09:20 10/15/25 09:34 Ketorolac Tromethamine 30 Mg/Ml Vial IM 10/15/25 09:21 30 mg ONCE ONE Administration Medical Decision Making Medical Decision Making [facility] Narrative: 45-year-old female with no known medical history presents the ER with complaints of 2 days of lower pelvic pain and lower back pain. Developed vaginal bleeding this morning and has used 4 pads. She is having bright red bleeding with clots. She denies any fevers, chills, vomiting, urinary symptoms. Her last menstrual cycle was August 17. She normally is regular. She is sexually active currently. No new sexual partners. She is not currently taking any contraception. She is MS2. she has not seen a home management supervisor in more than 3 years. She does have a history of an abnormal Pap with a negative colposcopy. She is scheduled to see [facility] range rider on November 07. vitals are stable Patient has mild suprapubic tenderness with no rebound or guarding. No CVA tenderness. She has moderate bleeding on her pelvic exam from the cervical os with diffuse tenderness on the bimanual exam. Will obtain labs, UA, urine and pelvic ultrasound will provide analgesia Differential Diagnosis Differential Diagnoses: The differential diagnosis associated with the presentation includes ectopic , threatened miscarriage, SAB, dysfunctional uterine bleeding, dysmenorrhea Less likely ovarian torsion, TOA, PID Admission/Observation Consideration of admission/observation: Escalation of care including admission/observation considered Lab Data MDM Lab Attestation statement: I reviewed the patient's lab results. 10/15/25 07:45 10/15/25 07:45 Labs: Lab Results 10/15/25 10/15/25 Range/Units 07:45 09:36 WBC 4.5 L (4.8-10.8) X10*3/uL RBC 5.01 (4.20-5.50) X10*6/uL Hgb 14.7 (12.0-16.0) g/dl Hct 45.3 (37.0-47.0) % MCV 90.4 (80.0-98.0) fL MCH 29.3 (27.0-33.0) pg MCHC 32.5 (31.0-35.0) g/dl RDW 12.8 (11.0-16.0) % Plt Count 297 (160-400) X10*3/uL MPV 10.2 (9.4-12.3) fL Immature Gran % (Auto) 0.2 (0.0-0.4) % Neut % (Auto) 44.1 L (45-73) % Lymph % (Auto) 42.7 H (20-40) % [place] % (Auto) 10.1 (2-11) % Eos % (Auto) 2.2 (0-4) % Baso % (Auto) 0.7 (0-2) % Lymph # (Auto) 1.9 (1.2-4.9) X10*3/uL [place] # (Auto) 0.5 (0.1-1.2) X10*3/uL Eos # (Auto) 0.1 (0.0-0.4) X10*3/uL Baso # (Auto) 0.0 (0.0-0.2) X10*3/uL Abs Immat Gran (auto) 0.01 (0.00-0.03) X10*3/uL Absolute Neuts (auto) 2.0 (2.0-8.3) x10*3/uL Absolute Nucleated RBC 0.000 (0.0-0.012) X10*3/uL Nucleated RBC % (auto) 0.0 (0.0-0.2) /100WBC Sodium 141 (135-145) mmol/L Potassium 4.2 (3.3-5.1) mmol/L Chloride 108 (96-108) mmol/L Carbon Dioxide 24 (22-29) mmol/L Anion Gap 13 (12-20) BUN 11 (9-16) mg/dL Creatinine 0.68 (0.5-1.4) mg/dL Estim Creat Clear Calc 106.2 Estimated GFR > 60 Random Glucose 94 (60-115) mg/dL Calcium 10.0 D (8.4-10.2) mg/dL Total Bilirubin 0.6 (0.0-1.0) mg/dL AST 31 (5-31) U/L ALT 13 (0-31) U/L Alkaline Phosphatase 85 (39-117) U/L Total Protein 7.2 (6.5-8.0) g/dL Albumin 4.4 (3.5-5.0) g/dL Beta HCG, Quant < 2 mIU/mL Urine Color [place] Urine Appearance Cloudy Urine pH 6.0 (5.0-9.0) Ur Specific [place] 1.020 (1.005-1.025) Urine Protein Trace (Neg-Trace) mg/dL Urine Glucose (UA) Negative (Negative) mg/dL Urine Ketones Negative (Negative) mg/dL Urine Blood Large (3+) H (Negative) Urine Nitrite Negative (Negative) Ur Leukocyte Esterase Negative (Negative) Urine RBC >20 H (0-2) /HPF Urine WBC 6-10 H (0-5) /HPF Ur Squamous Epith Cells 3-5 (0-2) /HPF Urine Bacteria Trace (None Seen) Hyaline Casts 0-2 (0-2) /LPF Urine Test NEGATIVE (NEGATIVE) T. vaginalis (PCR) NOT DETECTED (Not Detect) Bact vaginosis (PCR) POSITIVE A (Negative) C. krusei/glabrata (PCR) NOT DETECTED (Not Detect) [place] group (PCR) NOT DETECTED (Not Detect) Independent Interpretation I performed an independent interpretation of an: Ultrasound Interpretation: I independently viewed the ultrasound agree with the radiology report Radiology Impression Discussion of test interpretation with radiology: I have reviewed the radiologist's reading. Radiologist Impression: [address] [address] Ultrasound Report Signed Patient: Etienne Braxton MR#: [id number] : 1980 Acct:[id number] Age/Sex: 45 / F ADM Date: 10/15/25 Loc: .ED Attending Dr: Ordering Physician: Shakir Lawson MD Date of Service: 10/15/25 Procedure(s): US pelvic ovarian doppler Accession Number(s): [id number] cc: Jose G Mclean PA-C; Shakir Lawson MD~ Reason for Exam: pelvic pain/bleeding, r/o torsion CLINICAL HISTORY: pelvic pain bleeding, r o torsion US pelvis transabdominal and transvaginal with color and duplex Doppler Comparison: None Findings: Transabdominal scanning performed for overall anatomy. Transvaginal scanning performed for additional detail. LMP: 08/17/2025 Anteverted uterus, normal size and echotexture, measuring 10.1 x 4.5 x 5.8 cm. Well defined endometrium, measuring 8.0 mm in thickness. The right ovary measures, 2.6 x 2.1 x 2.3 cm. Normal sonographic appearance right ovary. Normal color Doppler with normal ovarian arterial and venous spectral tracing, The left ovary measures, 4.6 x 2.1 x 4.1 cm. Probable hemorrhagic cyst measuring 2.1 x 1.6 x 1.6 cm. Normal color Doppler with normal ovarian arterial and venous spectral tracing. No adnexal masses or fluid collections. No free fluid Impression: 1. No evidence of ovarian torsion. 2. Probable hemorrhagic cyst left ovary 3. Normal uterus Discharge Plan Discharge Clinical Impression: Ovarian cyst, Bacterial vaginosis Patient Disposition: Home, Self-Care Instructions: Bacterial Vaginosis (ED), Ovarian Cyst (ED) Additional Instructions: Keep your appointment with your home management supervisor on 11/07 Take the medications as prescribed. Do not drink alcohol with them Return for worsening symptoms Prescriptions: New ibuprofen 600 mg tablet 600 mg PO QID PRN (Reason: pain) Qty: 30 0RF metronidazole 500 mg tablet 500 mg PO BID 7 Days Qty: 14 0RF Referrals: Jose G Mclean PA-C [Primary Care Provider, Internal Medicine] Print Language: Tajik
[2025-10-15 10:51] VITALS: BP 137/87; PULSE 68; RESP 16; TEMP 36.9; O2SAT 98
[2025-10-15 11:10] LABS: Bacterial Vaginosis PCR POSITIVE (Negative); Candida Group PCR NOT DETECTED (Not Detect); Candida glab krusei PCR NOT DETECTED (Not Detect); Trichomonas vaginalis PCR NOT DETECTED (Not Detect)
[2025-10-15 11:42] LABS: CT PCR NOT DETECTED (Not Detect.); NG PCR NOT DETECTED (Not Detect.)
[2025-10-15 11:45] VITALS: BP 137/87; PULSE 68; RESP 16; TEMP 36.9; O2SAT 98
== END 2025-10-15 11:51 | disposition home or self-care (01) ==
PROVIDERS: Nurse Practitioner Family; Emergency Provider Emergency Medicine; PCP Physician Assistant Medical
DX: N83.202 Unspecified ovarian cyst, left side (principal); N76.0 Acute vaginitis; M54.50 Low back pain, unspecified; R10.20 Pelvic and perineal pain unspecified side; N93.9 Abnormal uterine and vaginal bleeding, unspecified; Z03.818 Encounter for observation for suspected exposure to other biological agents ruled out
CPT/HCPCS: 36415; 76830; 76856; 80053; 81001; 81003; 81025; 81515; 84702; 85025; 87086; 87491; 87591; 93975; 96372; 99283; 99284; J1885

== ENCOUNTER → 2025-10-15 09:37 | Outpatient (BNV) | payer OTHER, SELFPAY | PROVIDERS: Emergency Provider Emergency Medicine; PCP Physician Assistant Medical; Visit Provider Radiology Diagnostic Radiology | DX: N93.9 Abnormal uterine and vaginal bleeding, unspecified (principal); R10.20 Pelvic and perineal pain unspecified side | CPT/HCPCS: 93975 ==